=== PATIENT | male | born 1945 | race Caucasian/White ===

== ENCOUNTER 2020-06-08 08:37 | Outpatient (CLI) | payer MEDICARE, BC ==
--- NOTE | 2020-06-10 08:46 | EKG ---
Test Reason : Blood Pressure : / mmHG Vent. Rate : 062 BPM Atrial Rate : 062 BPM P-R Int : 158 ms QRS Dur : 084 ms QT Int : 434 ms P-R-T Axes : 034 031 013 degrees QTc Int : 440 ms Normal sinus rhythm Normal ECG No previous ECGs available Confirmed by WILMAN DUQUE, DR. Ruth ([id number]) on 06/10/2020 8:46:18 AM Referred By: PERRY Confirmed By:DR. Flory STOVALL MD
== END 2020-06-08 08:38 | disposition home or self-care (01) ==
LOC: LABBT 08:37
PROVIDERS: ATTEND Orthopaedic Surgery
DX: Z01.818 Encounter for other preprocedural examination (principal); M16.12 Unilateral primary osteoarthritis, left hip
CPT/HCPCS: 87081; 93005; 93010

== ENCOUNTER 2020-06-08 16:30 | Inpatient (IN) | payer BC, MEDICARE ==
--- NOTE | 2020-06-07 09:02 | HP ---
HISTORY OF PRESENT ILLNESS: The patient is a 75-year-old male with a several-day history of progressive left hip pain without injury. He has had progressive pain despite restriction of activities, anti-inflammatory medications including ketoprofen, and use of a cane. The pain is now interfering with day-to-day activities including walking, getting dressed, and sleeping. He had previous right total hip replacement in 2013 with good results. PAST MEDICAL HISTORY: The patient is otherwise in good health. He has no major medical problems. He takes ketoprofen and Tylenol. He is independent. ALLERGIES: HE HAS NO KNOWN ALLERGIES. FAMILY HISTORY: Otherwise unremarkable. SOCIAL HISTORY: Otherwise unremarkable. REVIEW OF SYSTEMS: Otherwise unremarkable. PHYSICAL EXAMINATION: GENERAL: Elderly, healthy male. HEENT: Unremarkable. NECK: Supple. CHEST: Clear. HEART: Regular rate and rhythm. ABDOMEN: Soft, nontender. RECTAL AND GENITAL: Deferred. EXTREMITIES: Pertinent findings related to the left hip. The left leg is approximately 1 cm short. There is tenderness in the anterior hip. There is a left antalgic gait. There is decreased range of motion of the left hip and groin pain with internal rotation. Neurovascular exam is intact. DIAGNOSTIC STUDIES: X-rays of the left hip reveal severe DJD with no joint space remaining. There is a right total hip replacement in good progression. IMPRESSION: 1. Degenerative arthritis, left hip. 2. Status post right total hip replacement. PLAN: Left total hip replacement. The nature of the surgery, length of recovery, and potential complications such as infection, loss of motion, incomplete relief, leg-length discrepancy, neurovascular injury, possible transfusion, and need for revision have been discussed in detail. Job ID: [id number]
[2020-06-07 09:53] VITALS: BMI 23.6
[2020-06-08 17:21] LABS: Bilirubin Neg (Negative); Blood, Urine Negative (Negative); Clarity Clear (Clear); Glucose, Urine (Dipstick) Normal (Negative); Ketone, Urine Negative (Negative); Leukocyte Negative (Negative); Nitrite Negative (Negative); Protein, Urine (Dipstick) Negative (Neg-Trace); Specific Gravity, Urine 1.015 (1.002-1.036); Urobilinogen Normal mg/dL (Less than 2)
[2020-06-08 17:27] LABS: #Eosinphils 0.2 10x3/uL (0.0-0.5); #Monocytes 0.6 10x3/uL (0.0-1.1); #Neutrophils 5.2 10x3/uL (1.5-8.4); %Basophils 0.5 % (0.0-2.0); %Eosinophils 2.6 % (0.0-6.0); %Lymphocytes 20.1 % (18.0-47.0); %Monocytes 7.9 % (0.0-10.0); %Neutrophils 68.8 % (40.0-75.0); Hemoglobin 14.4 g/dL (14.0-18.0); Mean Corpuscular HGB CONC 32.4 G/DL (32.0-36.0); Mean Corpuscular Hemoglobin 30.4 PG (27.0-33.0); Mean Corpuscular Volume 93.9 fl (80.0-100.0); Mean Platelet Volume 10.5 fl (7.4-10.4); Platelet Count 271 10x3/uL (130-400); RBC Distribution Width 12.9 % (11.5-14.5); Red Blood Cell (RBC) Count 4.74 10x6/uL (4.40-5.80); White Blood Cell (WBC) Count 7.6 10x3/uL (4.5-11.0)
[2020-06-08 17:47] LABS: Prothrombin Time 10.5 sec (9.5-12.1)
[2020-06-08 18:10] LABS: Anion Gap 17 mmol/L (10-20); BUN (Urea Nitrogen) 12 mg/dL (8.4-25.7); Calc. Creatinine Clearance 0 mL/min (70-130); Calcium 9.1 mg/dL (7.8-10.44); Carbon Dioxide 22 mmol/L (23-31); Chloride 103 mmol/L (98-107); Glucose 81 mg/dL (83-110); Potassium 4.4 mmol/L (3.5-5.1); Sodium 138 mmol/L (136-145)
[2020-06-08 18:22] LABS: Bacteria/HPF Rare-Few HPF (None Seen); RBC/HPF None Seen HPF (0-3); Squamous Epithelial 0-3 HPF (0-3); WBC/HPF 0-3 HPF (0-3)
[2020-06-09 13:39] LABS: SARS-CoV-2 MS2 Positive; SARS-CoV-2 N Gene Negative; SARS-CoV-2 S Gene Negative; SARS-CoV-2 by NAA Not Detected (NotDetected); SARS-CoV-2 orf1ab Negative
[2020-06-13] MEDS ORDERED: Tranexamic Acid 1,000 MG/10 ML VIAL ONE ×2 (05:59→09:10)
[2020-06-13] MEDS ORDERED: Vancomycin 1 GM/200 ML BAG ONE (05:59)
[2020-06-13] MEDS ORDERED: Sodium Chloride 0.9% 100 ML ONE (05:59)
[2020-06-13] MEDS ORDERED: Fentanyl 100 MCG/2 ML VIAL ONE (06:28)
[2020-06-13] MEDS ORDERED: Midazolam HCl 2 mg/2 ml Vial ONE (06:28)
[2020-06-13] MEDS ORDERED: Phenylephrine 10 MG/ML VIAL ONE (06:54)
[2020-06-13] MEDS ORDERED: Bupivacaine 0.25% HCL 30 ML VIAL ONE (07:31)
[2020-06-13] MEDS ORDERED: Promethazine HCl 25 MG/ML VIAL IM PRN ×2 (08:00→09:22)
[2020-06-13] MEDS ORDERED: Promethazine HCl 25 MG SUPP PR PRN (08:00)
[2020-06-13] MEDS ORDERED: Zolpidem Tartrate 5 MG TAB PO PRN ×2 (08:00→09:08)
[2020-06-13] MEDS ORDERED: Bupivacaine 0.25% 10 ML VIAL EPIDURAL PRN (08:00)
[2020-06-13] MEDS ORDERED: Ondansetron PF 4 MG/2 ML Vial IVP PRN ×2 (08:00→09:08)
[2020-06-13] MEDS ORDERED: diphenhydrAMINE 25 MG CAP PO PRN ×2 (08:00→09:08)
[2020-06-13] MEDS ORDERED: diphenhydrAMINE 50 MG/ML VIAL IM PRN (08:00)
[2020-06-13] MEDS ORDERED: Naloxone HCl 0.4 mg/ml Vial IVP PRN (08:00)
[2020-06-13] MEDS ORDERED: diphenhydrAMINE 50 MG/ML VIAL IVP PRN (08:00)
[2020-06-13] MEDS ORDERED: traMADol HCl 50 MG TAB PO PRN ×4 (08:00→12:18)
[2020-06-13] MEDS ORDERED: Naloxone HCl 0.4 mg/ml Vial IV PRN (08:00)
[2020-06-13] MEDS ORDERED: HYDROcodone/Acetaminophen 5/325 mg Tablet PO PRN ×2 (08:00)
[2020-06-13] MEDS ORDERED: Hydrocerin (Eucerin) Cream 120 gm Jar TOP PRN (08:00)
[2020-06-13] MEDS ORDERED: Acetaminophen 500 MG TAB PO PRN (08:05)
[2020-06-13] MEDS ORDERED: Promethazine HCl 25 MG/ML VIAL SLOW IVP PRN ×2 (09:08→09:22)
[2020-06-13] MEDS ORDERED: HYDROcodone/Acetaminophen 10/325 mg Tablet PO PRN ×4 (09:08→12:18)
[2020-06-13] MEDS ORDERED: Fentanyl 100 MCG/2 ML VIAL SLOW IVP PRN ×4 (09:08→12:18)
[2020-06-13] MEDS ORDERED: Acetaminophen 325 MG TAB PO PRN (09:08)
[2020-06-13] MEDS ORDERED: Tranexamic Acid 1,000 MG in Sodium Chloride 0.9% 100 ML IVPB SCH ×2 (09:08→09:15)
[2020-06-13] MEDS ORDERED: Ondansetron HCl/PF 4 MG/2 ML Vial IVP PRN (09:22)
--- NOTE | 2020-06-13 09:40 | OP ---
DATE OF PROCEDURE: 06/13/2020 This is Johnson Vance PA-C dictating a report for Jb Villanueva MD. ANESTHESIA: General via endotracheal tube, augmented with indwelling epidural. PREOPERATIVE DIAGNOSIS: End-stage bicompartmental osteoarthritis, left hip. POSTOPERATIVE DIAGNOSIS: End-stage bicompartmental osteoarthritis, left hip. PROCEDURE: Press-fit left total hip arthroplasty. ALLERGY AND IMMUNOLOGY CHIEF: Johnson Vance PA-C The emergency room physician assistant/co-surgeon was present through the entirety of the case assisting with a tissue manipulation, providing exposure, reduction of the hip, and positioning the patient as well as closure and assistants with the primary surgeon. COMPONENTS USED: [employer] Tritanium 56 mm press-fit acetabular shell, Accolade II size 7 press-fit hip stem, 10-degree polyethylene fixed bearing insert, and a -5 ceramic femoral head. ESTIMATED BLOOD LOSS: 250 mL. SPECIMENS: None. DRAINS: None. COMPLICATIONS: None. COUNTS: Correct. FINDINGS: End-stage severe degenerative bicompartmental disease, [id number] arthrosis, periarticular osteophyte formation, large serous effusion, hypertrophic changes. INDICATIONS FOR SURGERY: Richard is a 75-year-old white male, who has had progressive left hip, groin, and thigh pain, amplified with standing and walking for the last 5 to 7 years. He has failed conservative management, elected to proceed with total hip arthroplasty as definitive treatment of his pain. PROCEDURE IN DETAIL: After informed consent was obtained in the preoperative holding area, the patient was taken to the operative suite where general anesthesia was induced. The patient was then positioned in the lateral decubitus position. The hip was then prepped and draped in usual sterile fashion. The patient received preoperative antibiotics. Prior to incision, time-out was called and all members of the surgical team agreed upon site, surgeon, and patient. After this, a longitudinal incision was made directly over the trochanter, noted by palpation extending 2 fingerbreadths above and below the trochanter. The deeper subcutaneous layer was undermined with Bovie electrocautery. The iliotibial band was encountered and incised sharply and the plane below this was developed bluntly. A Charnley retractor was placed to hold this opened. The lateral aspect of the trochanter and the abductor muscles were encountered and then reflected anteriorly off the trochanter using Bovie electrocautery. Once this was completed, the anterior capsule was then encountered and identified and copious capsulotomy was carried out, exposing the femoral neck and head. Dislocation maneuver was then performed and an in situ provisional neck cut was then made using the oscillating saw. Attention was then turned to acetabular preparation. Sequential reaming was carried out up to the appropriate diameter and a trial was then malleted into place with good firm resistance and no pullout. The permanent acetabular shell was then malleted squarely into place, as was the appropriate liner. Once completed, the wound was copiously irrigated and attention was then turned to femoral preparation. Flexion and external rotation were performed of the exposed thigh and femoral elevators were then placed at the proximal aspect of the wound. Canal finder was used to establish the length of the canal and sequential reaming was carried out, followed by broaching. Once the appropriate stability was established with the trial broaches with flexion, extension and rotational stability, we did trial with neutral and 2 mm offset incremental necks. Once the appropriate size was decided upon, with good stability noted with flexion, extension, internal and external rotation and shuck being negative, we removed the femoral trial broach and malletted into place the permanent prosthesis with good firm fit, which was also stable to rotation. Again, the hip felt very stable to flexion, extension, internal and external rotation. Leg lengths appeared near anatomic clinically and we were quite happy with prosthesis placement. Copious irrigation was then carried out through the entirety of the wound. Primary closure of the abductors was accomplished with interrupted #2 Vicryl [id number] stitches and the IT band was then closed with interrupted #2 Vicryl, oversewn with a #2 running barbed Quill stitch. Subcutaneous fascia was closed with running barbed Quill stitch and a subcuticular Monocryl barbed Quill stitch was used for skin closure and augmented with skin cement. A sterile dressing was applied. The procedure was terminated without any complication. All counts were correct. The patient was awakened in the operative suite and taken to the recovery room in stable condition. The emergency room physician assistant surgeon helped throughout the procedure by positioning the patient, stabilizing the limb, holding retractors, aligning the prosthesis, and closure of procedure site. Job ID: [id number]
--- NOTE | 2020-06-13 09:46 | RAD ---
LEFT HIP 2 VIEWS: Date: 06/13/2020 HISTORY: Postoperative total hip replacement. COMPARISON: 05/16/2020. FINDINGS: Recent left total hip replacement changes. No dislocation or periprosthetic fracture. IMPRESSION: Unremarkable recent post left total hip replacement. POS: AH
[2020-06-13] MEDS ORDERED: PROPOFOL 200 MG/20 ML VIAL ONE (10:02)
[2020-06-13] MEDS ORDERED: Rocuronium Bromide 10 MG/ML (10ML VIAL) ONE (10:02)
[2020-06-13] MEDS ORDERED: Dexamethasone 20 MG/5 ML VIAL ONE (10:02)
[2020-06-13] MEDS ORDERED: Glycopyrrolate 0.2 MG/ML 5 ML SYRINGE ONE (10:02)
[2020-06-13] MEDS ORDERED: Lidocaine 1.5% w/Epi 1:200K 30 ML VIAL (Epid Use) ONE (10:02)
[2020-06-13] MEDS ORDERED: Lidocaine 1% PF 5 ML VIAL ONE (10:02)
[2020-06-13] MEDS ORDERED: Ondansetron PF 4 MG/2 ML Vial ONE (10:02)
[2020-06-13] MEDS ORDERED: Ketorolac Tromethamine 30 MG/ML VIAL IVP SCH (12:00)
[2020-06-13] MEDS ORDERED: Cholestyramine/Aspartame 4 gm Packet PO SCH (12:15)
[2020-06-13] MEDS: Sodium Chloride 0.9% 1,000 ML IV SCH ×2 (13:41→19:12)
[2020-06-13] MEDS: Ketorolac Tromethamine 30 MG/ML VIAL IVP SCH ×3 (13:42→23:29)
[2020-06-13] MEDS: CEFAZOLIN 2 GM in Premix Bag 1 BAG IVPB SCH ×2 (17:47→23:29)
[2020-06-13] MEDS ORDERED: Vancomycin 1 GM in Premix Bag 1 BAG IVPB SCH (18:00)
[2020-06-13] MEDS: Aspirin 81 mg Enteric Coated Tablet PO SCH (21:14)
[2020-06-13] MEDS: Cholecalciferol 1,000 UNITS (25 MCG) TAB PO SCH (21:14)
[2020-06-14] MEDS: fentaNYL Citrate/PF 500 MCG, Bupivacaine 10 ML in Sodium Chloride 0.9% 80 ML EPIDURAL SCH ×2 (01:59→19:00)
[2020-06-14] MEDS: Ketorolac Tromethamine 30 MG/ML VIAL IVP SCH ×4 (05:46→23:36)
[2020-06-14] MEDS: Sodium Chloride 0.9% 1,000 ML IV SCH ×2 (05:47→18:52)
[2020-06-14 06:08] LABS: Hemoglobin 11.4 g/dL (14.0-18.0); Mean Corpuscular HGB CONC 33.1 g/dL (32.0-36.0); Mean Corpuscular Hemoglobin 31.4 pg (27.0-31.0); Platelet Count 187 thou/uL (130-400); RBC Distribution Width 11.9 % (11.5-14.5); Red Blood Cell (RBC) Count 3.63 mill/uL (4.70-6.10); White Blood Cell (WBC) Count 9.8 thou/uL (4.8-10.8)
[2020-06-14] MEDS: Multivitamin W/ Minerals 1 TAB PO SCH (08:12)
[2020-06-14] MEDS: Cholecalciferol 1,000 UNITS (25 MCG) TAB PO SCH ×2 (08:12→21:47)
[2020-06-14] MEDS: Ferrous Gluconate 324 MG TAB PO SCH ×2 (08:12→21:47)
[2020-06-14] MEDS: Senokot S 8.6-50 MG TAB PO SCH ×2 (08:12→21:48)
[2020-06-14] MEDS: Aspirin 81 mg Enteric Coated Tablet PO SCH ×2 (08:13→21:47)
[2020-06-14] MEDS: Cholestyramine/Aspartame 4 gm Packet PO SCH (08:13)
[2020-06-15] MEDS: Ketorolac Tromethamine 30 MG/ML VIAL IVP SCH ×2 (05:04→11:41)
[2020-06-15] MEDS: Sodium Chloride 0.9% 1,000 ML IV SCH ×2 (06:09→09:40)
[2020-06-15 06:12] VITALS: TEMP 99.1
[2020-06-15] MEDS ORDERED: HYDROcodone/Acetaminophen 10/325 mg Tablet PO PRN ×2 (09:30)
[2020-06-15] MEDS: Cholestyramine/Aspartame 4 gm Packet PO SCH (09:34)
[2020-06-15] MEDS: Ferrous Gluconate 324 MG TAB PO SCH (09:38)
[2020-06-15] MEDS: Aspirin 81 mg Enteric Coated Tablet PO SCH (09:38)
[2020-06-15] MEDS: Multivitamin W/ Minerals 1 TAB PO SCH (09:38)
[2020-06-15] MEDS: Cholecalciferol 1,000 UNITS (25 MCG) TAB PO SCH (09:38)
[2020-06-15] MEDS: Senokot S 8.6-50 MG TAB PO SCH (09:38)
[2020-06-15 12:11] VITALS: BP 115/66
== END 2020-06-15 12:35 | disposition home or self-care (01) | DRG 470 ==
LOC: SURG A 06-13 05:36
PROVIDERS: ADMIT Orthopaedic Surgery; ATTEND Orthopaedic Surgery
PROC: 0SRB04A Replacement of Left Hip Joint with Ceramic on Polyethylene Synthetic Substitute, Uncemented, Open Approach (ICD-10-PCS; principal; 2020-06-13)
DX: M16.12 Unilateral primary osteoarthritis, left hip (principal); Z96.641 Presence of right artificial hip joint; Z98.890 Other specified postprocedural states; E78.5 Hyperlipidemia, unspecified; Z20.828 Contact with and (suspected) exposure to other viral communicable diseases
CPT/HCPCS: 36415; 80048; 81001; 85025; 85027; 85610; 86850; 86900; 86901; 87635; J0690; J1100; J1885; J2001; J2250; J2370; J2405; J2704; J3010; J3370; J3490; S0020; U0003

== ENCOUNTER 2024-08-13 08:23 | Outpatient (CLI) | payer MEDICARE | END 2024-08-13 08:24 | disposition home or self-care (01) | LOC: MRI 08:23 | PROVIDERS: ATTEND Student in an Organized Health Care Education/Training Program | DX: M47.26 Other spondylosis with radiculopathy, lumbar region (principal); M48.061 Spinal stenosis, lumbar region without neurogenic claudication; M48.07 Spinal stenosis, lumbosacral region; M41.9 Scoliosis, unspecified; M25.80 Other specified joint disorders, unspecified joint | CPT/HCPCS: 72148 ==